=== PATIENT | female | born 1975 | race Caucasian/White ===

== ENCOUNTER 2017-12-06 21:31 | Emergency (ER) | payer SELFPAY ==
[2017-12-06 21:51] VITALS: BMI 25.9
[2017-12-06] MEDS ORDERED: Sodium Chloride 0.9% 1,000 ML IV STA (21:56)
--- NOTE | 2017-12-06 22:00 | ED PDOC ---
Arrival/HPI - General Time Seen by Provider: 12/06/17 21:33 Historian: Patient - History of Present Illness Narrative History of Present Illness (Text): 12/06/17 21:57 42 year old female, pmh including irregular menstrual period, nkda, complaining of irregular vaginal bleeding and rt. pelvic pain x 2 months with no fall or trauma. Aching and cramping pain, no abdominal pain, no nausea or vomiting, no fever or chills, no urinary symptoms, no rash, no night sweat, no numbness or tingling, no other medical or psychological complaints. Past Medical History - Provider Review Nursing Documentation Reviewed: Yes - Psychiatric Hx Substance Use: No - Anesthesia Hx Anesthesia: No Family/Social History - Physician Review Nursing Documentation Reviewed: Yes Family/Social History: Unknown Family HX Smoking Status: Never Smoked Hx Alcohol Use: No Hx Substance Use: No Allergies/Home Meds Allergies/Adverse Reactions: Allergies No Known Allergies Allergy (Verified 12/06/17 21:51) Review of Systems - Review of Systems Constitutional: absent: Fatigue, Fevers Eyes: absent: Vision Changes ENT: absent: Hearing Changes Respiratory: absent: SOB, Cough Cardiovascular: absent: Chest Pain Gastrointestinal: absent: Abdominal Pain, Nausea, Vomiting Genitourinary Female: Vaginal Bleeding, Other (rt. pelvic pain). absent: Dysuria, Frequency, Hematuria, Urine Output Changes, Vaginal Discharge Skin: absent: Rash, Pruritis Neurological: absent: Headache, Dizziness Psychiatric: absent: Anxiety, Depression, Suicidal Ideation Physical Exam Vital Signs Pulse Resp BP Pulse Ox 12/06/17 22:36 74 20 120/76 99 - Systems Exam Head: Present: Atraumatic, Normocephalic Pupils: Present: PERRL Extroacular Muscles: Present: EOMI Conjunctiva: Present: Normal Mouth: Present: Moist Mucous Membranes Neck: Present: Normal Range of Motion Respiratory/Chest: Present: Clear to Auscultation, Good Air Exchange. No: Respiratory Distress, Accessory Muscle Use Cardiovascular: Present: Regular Rate and Rhythm, Normal S1, S2. No: Murmurs Abdomen: No: Tenderness (negative mendez sign, no mcburney point tenderness), Distention, Peritoneal Signs, Rebound, Guarding Genitourinary/Pelvic Exam: Present: Other (Pt. refused and stated that she is a virgin) Back: Present: Normal Inspection Upper Extremity: Present: Normal Inspection. No: Cyanosis, Edema Lower Extremity: Present: Normal Inspection. No: Edema Neurological: Present: GCS=15, CN II-XII Intact, Speech Normal Skin: Present: Warm, Dry, Normal Color. No: Rashes Psychiatric: Present: Alert, Oriented x 3, Normal Insight, Normal Concentration Medical Decision Making ED Course and Treatment: 12/06/17 22:00 -labs/ua/ test -transvaginal sonogram -IVF/tylenol -Observe and reassess 12/06/17 22:14 -Pt. refused transvaginal sonogram, change to pelvic sonogram, stated that she is not sexually active, still a virgin and refused pelvic examination as well, refused STD testing or prophylatic treatment. 12/07/17 00:51 -urine hcg is negative -Pelvic sonogram show No acute findings. -Labs are non-significant -Urinalysis show +UTI -Pain resolved, will discharge home. -Discharge home with motrin, macrobid, stay hydrated, bed rest, follow up with your own pmd and obgyn within 2 days, return to the ER for any new or worsening signs or symptoms. - Lab Interpretations Lab Results: 12/06/17 22:40 12/06/17 22:40 Lab Results 12/06/17 22:40: WBC 5.6, RBC 4.55, Hgb 14.2, Hct 41.3, MCV 90.8, MCH 31.2, MCHC 34.4, RDW 12.5, Plt Count 204, MPV 10.1, Gran % 47.8 L, Lymph % (Auto) 41.7 H, [place] % (Auto) 8.8 H, Eos % (Auto) 1.3 L, Baso % (Auto) 0.4, Gran # 2.67, Lymph # (Auto) 2.3, [place] # (Auto) 0.5, Eos # (Auto) 0.1, Baso # (Auto) 0.02 12/06/17 22:40: Sodium 143, Potassium 4.4, Chloride 105, Carbon Dioxide 25, Anion Gap 17, BUN 18, Creatinine 0.5 L, Est GFR ( Amer) > 60, Est GFR ( Non-Af Amer) > 60, Random Glucose 100, Calcium 9.2, Magnesium 1.9, Total Bilirubin 0.3, AST 30, ALT 25, Alkaline Phosphatase 49, Total Protein 7.5, Albumin 4.4, Globulin 3.1, Albumin/Globulin Ratio 1.4 12/06/17 22:30: Urine Color Yellow, Urine Appearance Slight-cloudy, Urine pH 6.0 , Ur Specific [place] >= 1.030, Urine Protein Trace H, Urine Glucose (UA) Negative, Urine Ketones Trace H, Urine Blood Large H, Urine Nitrate Negative, Urine Bilirubin Negative, Urine Urobilinogen 0.2, Ur Leukocyte Esterase Small H , Urine RBC 0 - 2, Urine WBC 0 - 2, Ur Epithelial Cells 1 - 3, Amorphous Sediment Trace, Hyaline Casts 0 - 2 - RAD Interpretation Radiology Orders: 12/06/17 23:07 PELVIS ULTRASOUND [US] Stat Uterus/cervix: Uterus measures 7.2 x 3.3 x 4.6 cm in size. No myometrial mass. Endometrium: 0.8 cm in thickness. Right ovary: 3.0 x 2.3 x 1.9 cm in size. No mass. Normal flow. Left ovary: Not visualized. Free fluid: No significant free fluid. Bladder: Unremarkable as visualized. IMPRESSION: 1. No acute findings. Thank you for allowing us to participate in the care of your patient. Dictated and Authenticated by: Oscar Rivera MD 12/07/2017 12:10 AM Eastern Time ([place] & [place]) [place] Layer: Radiologist - Medication Orders Current Medication Orders: Discontinued Medications Acetaminophen (Tylenol 325mg Tab) 650 mg PO STAT STA Stop: 12/06/17 21:57 Last Admin: 12/06/17 22:36 Dose: 650 mg MAR Pain/Vitals Document 12/06/17 22:36 (Rec: 12/06/17 22:36 [id number] Pain Reassessment Is This A Pain ReAssessment? No Sleep Is patient sleeping during reassessment? 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 Disposition/Present on Arrival - Present on Arrival Any Indicators Present on Arrival: No History of DVT/PE: No History of Uncontrolled Diabetes: No Urinary Catheter: No History of Decub. Ulcer: No History Surgical Site Infection Following: None - Disposition Have Diagnosis and Disposition been Completed?: Yes Diagnosis: Metrorrhagia, UTI (urinary tract infection) Disposition: HOME/ ROUTINE Disposition Time: 22:00 Patient Plan: Discharge Condition: IMPROVED Additional Instructions: -Discharge home with motrin, macrobid, stay hydrated, bed rest, follow up with your own pmd and obgyn within 2 days, return to the ER for any new or worsening signs or symptoms. Prescriptions: Ibuprofen [Motrin Tab] 600 mg PO QID PRN #30 tab PRN Reason: Other Nitrofurantoin Macrocrystals [Macrobid] 100 mg PO BID #14 cap Referrals: Thiago Garcia MD [Staff Provider] - Follow up with primary Forms: WORK NOTE
[2017-12-06 22:36] VITALS: PULSE 74
[2017-12-06 22:42] LABS: URINE BILIRUBIN NEGATIVE (NEGATIVE); URINE BLOOD LARGE (NEGATIVE); URINE GLUCOSE (UA) NEGATIVE (NEGATIVE); URINE LEUKOCYTE ESTERASE SMALL Leu/uL (NEGATIVE); URINE PROTEIN TRACE mg/dL (<30 mg/dL); URINE UROBILINOGEN 0.2 E.U./dL (<1 E.U./dL)
[2017-12-06 22:45] LABS: URINE APPEARANCE SLIGHT-CLOUDY (CLEAR); URINE COLOR YELLOW (YELLOW)
[2017-12-06 22:48] LABS: URINE RBC 0 - 2 /hpf (0-2); URINE WBC 0 - 2 /hpf (0-6)
[2017-12-06 22:49] LABS: URINE AMORPHOUS SEDIMENT TRACE; URINE HYALINE CAST 0 - 2 /hpf
[2017-12-06 22:51] LABS: BASO # 0.02 K/mm3 (0.0-2.0); BASO % 0.4 % (0.0-3.0); EOS # 0.1 (0.0-0.7); EOS % 1.3 % (1.5-5.0); GRAN # 2.67 (1.4-6.5); GRAN % 47.8 % (50.0-68.0); HEMOGLOBIN 14.2 g/dL (12.0-16.0); LYMPH # 2.3 (1.2-3.4); LYMPH % 41.7 % (22.0-35.0); MEAN CELL VOLUME 90.8 fl (80.0-105.0); MEAN CORPUSCULAR HEMOGLOBIN 31.2 pg (25.0-35.0); MEAN CORPUSCULAR HGB CONC 34.4 g/dl (31.0-37.0); MEAN PLATELET VOLUME 10.1 fl (7.0-11.0); MONO # 0.5 (0.1-0.6); MONO % 8.8 % (1.0-6.0); RBC 4.55 10^6/uL (3.5-6.1); RED CELL DISTRIBUTION WIDTH 12.5 % (11.5-14.5); WHITE BLOOD COUNT 5.6 10^3/ul (4.5-11.0)
[2017-12-06 23:02] LABS: ALB/GLOB RATIO 1.4 (1.1-1.8); ALBUMIN 4.4 g/dL (3.0-4.8); ALT/SGPT 25 U/L (7-56); AST/SGOT 30 U/L (14-36); BLOOD UREA NITROGEN 18 mg/dL (7-21); CALCIUM 9.2 mg/dL (8.4-10.5); GFR AFRICAN-AMERICAN > 60; GFR NON-AFRICAN AMERICAN > 60
--- NOTE | 2017-12-07 00:10 | US ---
EXAM: US Pelvis Complete, Transabdominal US Duplex Arterial/Venous of the Pelvis, Complete CLINICAL HISTORY: 42 years old, female; Pain; Pelvic pain; Additional info: Pelvic pain and abnormal period x 2 months TECHNIQUE: Real-time transabdominal pelvic ultrasound (complete) with image documentation. Real-time duplex ultrasound scan of the arterial and venous flow of the pelvis with color Doppler flow and spectral waveform analysis. COMPARISON: No relevant prior studies available. FINDINGS: Uterus/cervix: Uterus measures 7.2 x 3.3 x 4.6 cm in size. No myometrial mass. Endometrium: 0.8 cm in thickness. Right ovary: 3.0 x 2.3 x 1.9 cm in size. No mass. Normal flow. Left ovary: Not visualized. Free fluid: No significant free fluid. Bladder: Unremarkable as visualized. IMPRESSION: 1.No acute findings.
[2017-12-07 01:10] VITALS: BP 112/74; RESP 18; TEMP 97.7; O2SAT 98
== END 2017-12-07 01:10 | disposition home or self-care (01) ==
LOC: ED 21:31
DX: N39.0 Urinary tract infection, site not specified (principal); N92.1 Excessive and frequent menstruation with irregular cycle